=== PATIENT | female | born 1980 | race Caucasian/White ===

== ENCOUNTER 2016-12-05 12:40 | Emergency (ER) | payer OTHER ==
[~2016-12-05] VITALS: Ht 167.6 cm; Wt 68.0 kg
[2016-12-05] MEDS ORDERED: MOBIC15 MG PO (15:23)
[2016-12-05 15:43] VITALS: BP 126/79
== END 2016-12-05 15:45 | disposition home or self-care (01) ==
LOC: ER 12:40
DX: S16.1XXA Strain of muscle, fascia and tendon at neck level, initial encounter (principal); M25.562 Pain in left knee; V43.52XA Car driver injured in collision with other type car in traffic accident, initial encounter; Y93.I9 Activity, other involving external motion; Y92.488 Other paved roadways as the place of occurrence of the external cause; Y99.8 Other external cause status